=== PATIENT | female | born 1995 | race Caucasian/White ===

== ENCOUNTER → 2016-02-22 | Outpatient (CLI) | payer MEDICAID ==
[~2016-02-22] MED LIST: IBUP-232 PO; PRENCAP6 PO; TETA1INJ6 IM
== END ==
LOC: HPND 08:00
PROVIDERS: ATTEND Family Medicine
DX: O44.02 Complete placenta previa NOS or without hemorrhage, second trimester (principal)
CPT/HCPCS: 76816

== ENCOUNTER 2016-03-02 21:49 | Emergency (ER) | payer MEDICAID ==
[~2016-03-02 21:49] MED LIST changes: -IBUP-232 PO; -TETA1INJ6 IM
--- NOTE | 2016-03-02 22:51 | PD ---
HPI Chief Complaint Abdominal pain Date Seen: Mar 02, 2016 Time Seen: 22:15 (Thad Hernandez MD R1) Travel History International Travel<30 Days: No Contact w/Intl Traveler<30Days: No Known Affected Area: No (Thad Hernandez MD R1) History of Present Illness HPI 21 yo at 26/5 weeks gestation presenting with abdominal pain. Pain is localized to umbilicus and radiates downward to pelvic bone. Occurs every 2 hours for about 1 minute per episode. No associated fevers, chills, constipation , diarrhea, dysuria. No VB, vaginal discharge, LOF, or Ctx. Feeling movement 1-2 times daily. Drinks approx 3 glasses of water daily with some soda. No recent sexual activity. No vaginal douching. (Thad Hernandez MD R1) History Past Medical History Medical History: Denies Significant Hx (Thad Hernandez MD R1) Obstetric History Obstetric History First (Thad Hernandez MD) Past Surgical History Surgical History: No Previous Surgery (Thad Hernandez MD) Family History Family History: Negative (Thad Hernandez MD R1) Social History Alcohol Use: No Tobacco Use: Yes (Current every day smoker, 5-8 cigarettes per day) Substance Abuse: No (Thad Hernandez MD R1) Allergies-Medications (Allergen,Severity, Reaction): Coded Allergies: No Known Allergies (Unverified , 02/24/16) Home Meds Active Scripts Mv & Min W/Fe Fumarat ( 1) Cap1 Cap PO DAILY #30 CAP Ref 11 Prov:Selin Meadows MD 12/02/15 Review of Systems Except as stated in HPI: all other systems reviewed are Neg (Thad Hernandez MD R1) Physical Exam Narrative GENERAL: Well-nourished, well-developed patient. SKIN: Warm and dry. HEAD: Normocephalic and atraumatic. EYES: No scleral icterus. No injection or drainage. ENT: No nasal drainage noted. Mucous membranes pink. Airway patent. NECK: Supple, trachea midline. No JVD. CARDIOVASCULAR: Regular rate and rhythm without murmurs, gallops, or rubs. RESPIRATORY: Breath sounds equal bilaterally. No accessory muscle use. ABDOMEN/GI: Abdomen soft, non-tender, no rebound, no guarding GENITOURINARY: Deferred; no contractions noted on tocometry FHT's: 145 +/- 2 EXTREMITIES: No cyanosis or edema. BACK: Nontender without obvious deformity. NEUROLOGICAL: Awake and alert. Motor and sensory grossly within normal limits. Normal speech. (Thad Hernandez MD R1) Data Data Vital Signs Reviewed: Yes Orders Vital Signs (Adult) .ON ADMISSION (03/02/16 22:03) ^ Labor Status (03/02/16 22:03) ^ Hydration (03/02/16 22:03) Urinalysis - C+S If Indicated (03/02/16 22:13) (Thad Hernandez MD R1) MDM Medical Record Reviewed: Yes Interpretation(s) 21 year old at 26/2 weeks gestation presenting with abdominal pain likely due to dehydration vs round ligament pain Narrative Course / MDM #1 IUP FHTs mid 140s, reassuring * Continue routine OB care #2 Tobacco use Current every day smoker * Encouraged to stop smoking #3 Abdominal pain By history most likely round ligament pain. VS wnl, unlikely to be appendicitis. Pattern not suggestive of contractions, no Ctx noted on tocometry. * Hydration * UA to r/o UTI Update: UA negative for UTI, stable for D/C home with outpatient follow up sdw Dr. Goodman neeraj Lund (Thad Hernandez MD R1) Attending Attestation Patient seen and evaluated with resident under direct supervision, agree with assessment and plan. (Ashish Lund MD) Diagnosis Diagnosis: Primary Impression: Round ligament pain Disposition: 01 DISCHARGE HOME Condition: Good Thad Hernandez MD R1 Mar 02, 2016 22:51 Ashish Lund MD Mar 03, 2016 08:53
[2016-03-03 00:05] LABS: BACTERIA, URINE OCC /hpf; BLOOD, URINE NEG (NEG); COMMENT (UR) CULT NOT INDICATED; CULTURE IF INDICATED CULT NOT INDICATED; GLUCOSE,URINE NEG (NEG); KETONE, URINE NEG (NEG); NITRITE,URINE NEG (NEG); URINE COLOR COLORLESS (YELLW/STRAW)
[2016-03-03 00:15] VITALS: RESP 18
[2016-03-26] MEDS ORDERED: TETA1INJ6 IM (10:36)
== END 2016-03-03 04:39 | disposition home or self-care (01) ==
LOC: HOBED 21:49
DX: O26.92 Pregnancy related conditions, unspecified, second trimester (principal); R10.2 Pelvic and perineal pain; Z3A.26 26 weeks gestation of pregnancy
CPT/HCPCS: 81001; 99284

== ENCOUNTER 2016-03-19 11:44 | Emergency (ER) | payer MEDICAID ==
[2016-03-19 12:11] VITALS: BP 104/59; PULSE 77
--- NOTE | 2016-03-19 12:14 | PD ---
HPI Chief Complaint Vomited blood 1 this morning Date Seen: Mar 19, 2016 Time Seen: 12:11 (Joselito Iraheta MD R2) Chief Complaint Patient seen and assessment/plan reviewed. (Cheryl Nguyen MD) Travel History International Travel<30 Days: No Contact w/Intl Traveler<30Days: No Known Affected Area: No (Joselito Iraheta MD R2) History of Present Illness HPI 21 G1 at 28.5 presents to OB triage because she vomited twice this morning and the latter time had a small amount of blood. She woke up this morning feeling her normal self. She ate eggs and wick and went to shower. While in the shower she vomited twice. The first time she vomited was food she ate. The second time she vomited, there was a small "approximately 6 ounces" bright red blood in the vomit. She called the [facility] where her physician, Dr. Meadows, works. That office recommended she come to the triage area. Since coming to the triage, the patient a longer nausea or vomiting. She feels perfectly normal here. No diarrhea, fever, chills, cough, sick contacts, constipation, abdominal pain. Para: 0 : 1 (Joselito Iraheta MD R2) History Past Medical History Medical History: Denies Significant Hx (Joselito Iraheta MD R2) Past Surgical History Surgical History: No Previous Surgery (Joselito Iraheta MD R2) Family History Family History: Negative (Joselito Iraheta MD R2) Social History Alcohol Use: No Tobacco Use: Yes Substance Abuse: No (Joselito Iraheta MD R2) Allergies-Medications (Allergen,Severity, Reaction): Coded Allergies: No Known Allergies (Unverified , 02/24/16) Home Meds Active Scripts Mv & Min W/Fe Fumarat ( 1) Cap1 Cap PO DAILY #30 CAP Ref 11 Prov:Selin Meadows MD 12/02/15 Physical Exam Narrative GENERAL: Well-nourished, well-developed patient. SKIN: Warm and dry. HEAD: Normocephalic and atraumatic. EYES: No scleral icterus. No injection or drainage. ENT: No nasal drainage noted. Mucous membranes pink. Airway patent. NECK: Supple, trachea midline. No JVD. CARDIOVASCULAR: Regular rate and rhythm without murmurs, gallops, or rubs. RESPIRATORY: Breath sounds equal bilaterally. No accessory muscle use. ABDOMEN/GI: Abdomen soft, non-tender, bowel sounds present, no rebound, no guarding FHT's: Category: 1 Baseline: 145 Reactive: Yes with accelerations Variability: Moderate Decels: None EXTREMITIES: No cyanosis or edema. BACK: Nontender without obvious deformity. No CVA tenderness. NEUROLOGICAL: Awake and alert. Motor and sensory grossly within normal limits. Five out of 5 muscle strength in all muscle groups. Normal speech. (Joselito Iraheta MD R2) Data Data Vital Signs Reviewed: Yes (Joselito Iraheta MD R2) [facility] Medical Record Reviewed: Yes Interpretation(s) 21 G1 at 28.5 presents after having vomited this morning and finding blood in it. Vitals reviewed, patient is stable. Patient no longer having nausea or vomiting. 1. IUP -Category 1 tracing -Continue routine care. 2. Vomiting -Likely related to her meal this morning. -No longer vomiting. No longer nauseous. Patient is back to her baseline. -Discharge patient home. (Joselito Iraheta MD R2) Diagnosis Diagnosis: Primary Impression: Vomiting Disposition: DISCHARGE HOME Condition: Stable Joselito Iraheta MD R2 Mar 19, 2016 12:14 Cheryl Nguyen MD Mar 19, 2016 12:51
[2016-03-26] MEDS ORDERED: TETA1INJ6 IM (10:36)
== END 2016-03-19 12:45 | disposition home or self-care (01) ==
LOC: HOBED 11:44
DX: O21.0 Mild hyperemesis gravidarum (principal); Z3A.28 28 weeks gestation of pregnancy
CPT/HCPCS: 99283

== ENCOUNTER → 2016-04-04 | Outpatient (CLI) | payer MEDICAID ==
[~2016-04-04] MED LIST changes: +IBUP-232 PO
== END ==
LOC: HPND 07:53
PROVIDERS: ATTEND Family Medicine
DX: Z34.90 Encounter for supervision of normal pregnancy, unspecified, unspecified trimester (principal)
CPT/HCPCS: 76816

== ENCOUNTER 2016-05-31 10:23 | Emergency (ER) | payer MEDICAID ==
[~2016-05-31 10:23] MED LIST changes: -IBUP-232 PO
--- NOTE | 2016-05-31 11:28 | PD ---
HPI Chief Complaint Contractions Date Seen: May 31, 2016 (Jason Avelar MD R2) Travel History International Travel<30 Days: No Contact w/Intl Traveler<30Days: No (Jason Avelar MD R2) History of Present Illness HPI Ms. Hammonds is a 21 yo G[address] of [address] Meadows at an estimated 39 2/7weeks (ELVIRA 06/05 per LMP) who presents with complaint of contractions. Patient reports the contractions began at approximately 4 AM this morning and it gradually increased in frequency. It and states that contractions initially seemed to occur approximately 45 minutes apart, but recently had been regularly less than 5 minutes apart. Patient denies vaginal bleeding or loss of vaginal fluid. The patient does not report headache, visual changes, shortness of breath, chest pain,, leg swelling, dysuria, or other symptoms. Patient has not noticed any decrease in movement. Per review of records, patient had reassuring ultrasound without abnormalities or abnormal placental placement. Patient has gradually decreased her tobacco intake during ; she smokes approximately 5 cigarettes a day currently. GBS negative. Para: 0 : 1 (Jason Avelar MD R2) History Past Medical History Narrative Medical Tobacco abuse (Jason Avelar MD R2) Obstetric History Obstetric History G1 (Jason Avelar MD R2) Past Surgical History Surgical History: No Previous Surgery (Jason Avelar MD R2) Family History Family History: Negative (Jason Avelar MD R2) Social History Narrative Social History Patient smoked approximately one PPD prior to ; currently smokes approximately 5 cigarettes daily Alcohol Use: No Tobacco Use: Yes Substance Abuse: No (Jason Avelar MD R2) Allergies-Medications (Allergen,Severity, Reaction): Coded Allergies: No Known Allergies (Unverified , 05/29/16) Home Meds Active Scripts Mv & Min W/Fe Fumarat ( 1) Cap1 Cap PO DAILY #30 CAP Ref 11 Prov:Selin Meadows MD 12/02/15 Physical Exam BP 122/80 HR 75 T 98.3F RR 19 Narrative GENERAL: Well-nourished, well-developed patient. SKIN: Warm and dry. HEAD: Normocephalic and atraumatic. EYES: No scleral icterus. No injection or drainage. ENT: No nasal drainage noted. Mucous membranes pink. Airway patent. NECK: Supple, trachea midline. No JVD. CARDIOVASCULAR: Regular rate and rhythm without murmurs RESPIRATORY: CTAB, normal rate ABDOMEN/GI: Abdomen soft, non-tender, bowel sounds present, no rebound, no guarding Gravid EXTREMITIES: No cyanosis or edema. NEUROLOGICAL: Awake and alert. Motor and sensory function grossly within normal limits. GENITOURINARY: External Genitalia: intact and normal in appearance Cervix: Dilatation: 2 Effacement: 70% Station: -3 Presentation: V Membranes: Intact Uterine Contractions: q2-3 min FHT's: Category: 1 Baseline: 135 Reactive: Y Variability: Mod Decels: None (Jason Avelar MD R2) MDM Medical Record Reviewed: Yes Narrative Course / MDM 21 yo G1 patient of [address]. Meadows at an estimated 39 2/7weeks (ELVIRA 06/05 per LMP) who presents with complaint of contractions -Cat 1 rhythm -Cervix 2/70%/-3 Contractions q 2-3 min -GBS- -Tobacco abuse during but no other complications Plan: -Since reassuring rhythm x>20 min, patient given options of returning home (resting/eating prior to returning with increased contractions, ROM, or other symptoms) vs. ambulating in OB ED and rechecking cervix in ~1 hr -Patient elected to ambulate in ED and recheck cervix Interval: Cervical recheck performed: 3 cm dilation/90% effacement/-2 station Patient with persistent contractions, no loss of fluid EFM reassuring, category 1 Updated plan: Discussed with patient options of staying for L&D (due to having made cervical change in early labor) versus going home and returning with increased pain with contractions/loss of fluid/other symptoms (since G1 in early labor): -Patient elected to return home during early labor with plans to return to OB ED with any new symptoms or with increased pain with contractions (Jason Avelar MD R2) Attending Attestation 39 weeks, uncomplicated care with Dr. Meadows. Irregular UC, minimal cervical change on serial exams. Latent labor. Patient desires to go home and eat, and return if changes in contractions, ROM, VB, etc. CAT I FHT. Agree with plan of care, Dr. Avelar. (Linnea Colbert MD) Diagnosis Diagnosis: Primary Impression: Term Additional Impression: Labor without complication Disposition: 01 DISCHARGE HOME Condition: Stable Patient Instructions: Movement (ED), General Instructions, Early Labor Signs (ED) Jason Avelar MD R2 May 31, 2016 11:28 Linnea Colbert MD May 31, 2016 13:09
== END 2016-05-31 13:47 | disposition home or self-care (01) ==
LOC: HOBED 10:23
DX: R10.84 Generalized abdominal pain (principal); O26.93 Pregnancy related conditions, unspecified, third trimester; Z3A.39 39 weeks gestation of pregnancy
CPT/HCPCS: 59025

== ENCOUNTER 2016-05-31 16:15 | Inpatient (IN) | payer MEDICAID ==
[~2016-05-31] VITALS: Ht 154.9 cm; Wt 69.4 kg
[2016-05-31] VITALS (59 sets, daily range): BP systolic 94–144; BP diastolic 58–98; PULSE 65–141; RESP 18; TEMP 97.9–98
[~2016-05-31 16:15] MED LIST changes: +DIPHTH/TETANUS/ACEL PERTUSSIS (BOOSTER) 0.5 ML VIAL/PFS IM ONE; +MEASLES, MUMPS, RUBELLA VACCINE 0.5 ML VIAL SQ ONE
[2016-05-31] MEDS ORDERED: LACTATED RINGER'S 1000 ML INJ 1,000 ML IV PRN (17:17)
[2016-05-31] MEDS ORDERED: LACTATED RINGER'S 1000 ML INJ 1,000 ML IV SCH (17:17)
[2016-05-31] MEDS ORDERED: MINERAL OIL 10 ML VIAL TOPICAL PRN (17:30)
[2016-05-31] MEDS ORDERED: SODIUM CHLORID 0.9% 500 ML INJ 500 ML IV PRN (17:30)
[2016-05-31] MEDS ORDERED: OXYTOCIN 30 UNITS-500ML PREMIX 500 ML IV ONE (17:30)
[2016-05-31] MEDS ORDERED: CITRIC ACID-SODIUM CITRATE LIQ 30 ML UDC PO SCH (17:30)
[2016-05-31] MEDS ORDERED: LIDOCAINE HCL 1% 50 ML VIAL I-DERMAL PRN (17:30)
[2016-05-31] MEDS ORDERED: LIDOCAINE HCL 1% 50 ML VIAL INFIL PRN (17:30)
[2016-05-31] MEDS ORDERED: SODIUM CHLOR 0.9% 1000 ML INJ 1,000 ML IV PRN (17:37)
[2016-05-31 18:06] LABS: AUTOMATED NEUTROPHIL # 13.6 TH/MM3 (1.8-7.7); BASOPHIL # 0.1 TH/MM3 (0-0.2); BASOPHIL % 0.4 % (0.0-2.0); EOSINOPHIL # 0.1 TH/MM3 (0-0.4); EOSINOPHIL % 0.4 % (0.0-4.0); HEMATOCRIT 36.1 % (35.0-46.0); LYMPH % 9.6 % (9.0-44.0); LYMPHOCYTE # 1.5 TH/MM3 (1.0-4.8); MEAN CELL VOLUME 94.2 FL (80.0-100.0); MEAN CORPUSCULAR HGB CONC 33.9 % (32.0-36.0); MONO % 4.3 % (0.0-8.0); NEUT % 85.3 % (16.0-70.0); PLATELET COUNT 169 TH/MM3 (150-450); RED BLOOD COUNT 3.84 MIL/MM3 (4.00-5.30); RED CELL DISTRIBUTION WIDTH 11.9 % (11.6-17.2); WHITE BLOOD COUNT 15.9 TH/MM3 (4.0-11.0)
[2016-05-31 18:07] LABS: HEMO FLAGS AUTO DIFF
[2016-05-31 18:07] LABS: BACTERIA, URINE RARE /hpf; BLOOD, URINE NEG (NEG); COMMENT (UR) CULT NOT INDICATED; CULTURE IF INDICATED CULT NOT INDICATED; GLUCOSE,URINE NEG (NEG); KETONE, URINE NEG (NEG); NITRITE,URINE NEG (NEG); PH, URINE 7.5 (5.0-8.5); SQUAMOUS EPITHELIAL CELL URINE <1 /hpf (0-5); URINE COLOR LIGHT-YELLOW (YELLW/STRAW)
--- NOTE | 2016-05-31 18:12 | HHI.HP ---
HPI Chief Complaint contractions Date Seen: May 31, 2016 (Jason Avelar MD R2) Travel History International Travel<30 Days: No Contact w/Intl Traveler<30Days: No (Jason Avelar MD R2) History of Present Illness HPI Ms. Hammonds is a 21 yo G1 patient of Dr. Meadows at an estimated 39 2/7weeks (ELVIRA 4 per LMP) who presents with complaint of contractions. [Patient seen earlier this morning with cervical dilation of 2-3 cm over 1+ hours suggestive of early labor; patient sent home after labor precautions given.] Patient states the contractions have increased in level of pain since earlier this morning. Per history earlier today: Contractions began at approximately 4 AM and gradually increased in frequency so that they are occurring < 5 minutes apart. No vaginal bleeding or loss of vaginal fluid. No reported headache, visual changes, shortness of breath, chest pain,, leg swelling, dysuria, or other symptoms. No reported decrease in movement. Per review of records, patient had reassuring ultrasound without abnormalities or abnormal placental placement. Patient has gradually decreased her tobacco intake during ; she smokes approximately 5 cigarettes a day currently. GBS negative. Para: 0 : 1 (Jason Avelar MD R2) History Past Medical History Narrative Medical Tobacco abuse (Jason Avelar MD R2) Obstetric History Obstetric History G1 (Jason Avelar MD R2) Past Surgical History Surgical History: No Previous Surgery (Jason Avelar MD R2) Family History Narrative Family History None reported (Jason Avelar MD R2) Social History Narrative Social History Patient smoked approximately one PPD prior to ; currently smokes approximately 5 cigarettes daily Alcohol Use: No Tobacco Use: Yes Substance Abuse: No (Jason Avelar MD R2) Allergies-Medications (Allergen,Severity, Reaction): Coded Allergies: No Known Allergies (Unverified , 05/31/16) Home Meds Active Scripts Mv & Min W/Fe Fumarat ( 1) Cap1 Cap PO DAILY #30 CAP Ref 11 Prov:Selin Meadows MD 12/02/15 Review of Systems General / Constitutional: No: Fever, Chills HENT: No: Headaches Cardiovascular: No: Chest Pain or Discomfort Respiratory: No: Short of Breath Gastrointestinal: Abdominal Pain (with contractions), No: Nausea, Vomiting Genitourinary: No: Dysuria (Jason Avelar MD R2) Physical Exam BP 126/83 HR 80 T 98.5F Narrative GENERAL: Well-nourished, well-developed patient. SKIN: Warm and dry. HEAD: Normocephalic and atraumatic. EYES: No scleral icterus. No injection or drainage. ENT: No nasal drainage noted. Mucous membranes pink. Airway patent. NECK: Supple, trachea midline. No JVD. CARDIOVASCULAR: Regular rate and rhythm without murmurs RESPIRATORY: CTAB, normal rate ABDOMEN/GI: Abdomen soft, non-tender, bowel sounds present, no rebound, no guarding Gravid EXTREMITIES: No cyanosis or edema. NEUROLOGICAL: Awake and alert. Motor and sensory function grossly within normal limits. GENITOURINARY: External Genitalia: intact and normal in appearance Cervix: Dilatation: 4-5 Effacement: 80% Station: -2 Presentation: V Membranes: Intact Uterine Contractions: q2-3 min FHT's: Category: 1 Baseline: 135 Reactive: Y Variability: Mod Decels: None (Jason Avelar MD R2) Data Data Vital Signs Reviewed: Yes Orders Admit To Inpatient (05/31/16 ) Vital Signs (Adult) .Per protocol (05/31/16 17:17) Heart (05/31/16 17:17) Amnioinfusion (05/31/16 17:17) Urinary Catheter Management .ONCE (05/31/16 17:17) Diet Liquid (05/31/16 Dinner) Lactated Ringer's 1000 Ml Inj (Lr 1000 M (05/31/16 17:17) Lactated Ringer's 1000 Ml Inj (Lr 1000 M (05/31/16 17:17) Sodium Chlorid 0.9% 500 Ml Inj (Ns 500 M (05/31/16 17:30) Sodium Chlor 0.9% 1000 Ml Inj (Ns 1000 M (05/31/16 17:37) Lidocaine 1% Inj (50 Ml) (Xylocaine 1% I (05/31/16 17:30) Citric Acid-Sodium Citrate Liq (Bicitra (05/31/16 17:30) Fentanyl Inj (Fentanyl Inj) (05/31/16 17:30) Fentanyl Inj (Fentanyl Inj) (05/31/16 17:30) Complete Blood Count With Diff (05/31/16 17:17) Hold Clot (05/31/16 17:17) Abo/Rh Blood Type (05/31/16 17:17) Urinalysis - C+S If Indicated (05/31/16 17:17) Resp Oxygen Non Rebreathe Mask (05/31/16 ) ^ Epidural / Intrathecal Infus (05/31/16 17:17) Oxytocin 30 Units-500ml Premix (Pitocin (05/31/16 17:30) Lidocaine 1% Inj (50 Ml) (Xylocaine 1% I (05/31/16 17:30) Light Mineral Oil (Muri-Lube Oil) (05/31/16 17:30) Inpatient Certification (05/31/16 ) Specimen To Be Collected PRN (05/31/16 17:17) (Jason Avelar MD R2) Assessment/Plan Problem List: (1) Term (2) Labor without complication Assessment and Plan 21 yo G1 patient of [address]. Meadows at an estimated 39 2/7weeks (ELVIRA 425 per LMP) who presents with complaint of contractions -Cat 1 rhythm -Cervix 4-5/80%/-2 Contractions q 2-3 min -GBS- -Tobacco abuse during but no other complications Plan: -Will admit for labor We'll obtain UA, CBC, blood typing Continue EFM We'll check cervix 23 hours; will augment labor as needed -Epidural if desired (Jason Avelar MD R2) Attending Attestation Admit, active labor CAT I FHT Expectant management AROM when indicated (Linnea Colbert MD) Jason Avelar MD R2 May 31, 2016 18:12 Linnea Colbert MD May 31, 2016 23:41
[2016-05-31 18:41] LABS: BANDS 8 % (0-6); EOSINOPHILS 1 % (0-4); METAMYELOCYTES 1 % (0-1); NEUTROPHIL # MANUAL DIFF 14.2 TH/MM3 (1.8-7.7); PLATELET ESTIMATE SMEAR NORMAL (NORMAL); PLATELET MORPHOLOGY ENLARGED (NORMAL); POLYS (SEG NEUTROPHILS) 80 % (16-70); SCAN/DIFF FINAL DIFF MANUAL; WBC DIFF SAMPLE 100
[2016-05-31] MEDS ORDERED: fentaNYL 2MCG-BUPIV 0.125% INJ 100 ML ONE (19:11)
[2016-05-31] MEDS ORDERED: CALCIUM CARBONATE 500 MG CHEWABLE TAB CHEW STA (22:15)
--- NOTE | 2016-05-31 23:26 | PD.OB.DELI ---
Delivery Date: May 31, 2016 Anesthesia: Epidural Episiotomy: None Vaginal Delivery: Normal, Spontaneous Presentation: Occiput anterior Nuchal Cord: None Delayed cord clamping (45 sec): Yes Infant: Female One Minute : 9 Five Minute : 9 Weight: 2795 Placenta: Spontaneous delivery Laceration: Perineal laceration, 2 deg Repair: Vicryl running (2-0 Vicryl repair of mild 2nd degree perineal laceration) Additional Information Delivery at 2252 Tactile stimulation/suction bulb of Supervised/assisted by Dr. Colbert (Jason Avelar MD R2) Additional Information 39w2d spontaneous labor, GBS negative. Epidural for anesthesia, AROM, clear. Uncomplicated , placenta spontaneous and intact, grossly normal. Small midline second degree lac repaired. EBL 150 ml (Linnea Colbert MD) Jason Avelar MD R2 May 31, 2016 23:26 Linnea Colbert MD May 31, 2016 23:44
[2016-05-31] MEDS ORDERED: ONDANSETRON ODT 4 MG TAB PO PRN (23:30)
[2016-05-31] MEDS ORDERED: oxyCODONE/ACETAMINOPHEN 5 MG/325 MG TAB PO PRN ×2 (23:30)
[2016-05-31] MEDS ORDERED: SODIUM CHLORIDE 0.9% FLUSH 10 ML FLUSH IV FLUSH PRN (23:30)
[2016-05-31] MEDS ORDERED: ZOLPIDEM TARTRATE 5 MG TAB PO PRN (23:30)
[2016-05-31] MEDS ORDERED: ALUMINUM/MAGNESIUM/SIMETH 30 ML CUP PO PRN (23:30)
[2016-05-31] MEDS ORDERED: DOCUSATE SODIUM 50 MG/SENNA 8.6 MG TAB PO PRN (23:30)
[2016-05-31] MEDS ORDERED: ACETAMINOPHEN 325 MG TAB PO PRN (23:30)
[2016-05-31] MEDS ORDERED: BENZOCAINE 20% TOPICAL SPRAY 60 ML CAN TOPICAL PRN (23:30)
[2016-05-31] MEDS ORDERED: WITCH HAZEL 50%/GLYCERIN 12.5% 40 PAD JAR TOPICAL PRN (23:30)
[2016-06-01] VITALS: BP 114/72; PULSE 155; RESP 18
[2016-06-01 00:15] VITALS: BP 117/66; PULSE 81; RESP 18
[2016-06-01] MEDS: IBUPROFEN 600 MG TAB PO PRN ×2 (01:12→19:46)
[2016-06-01 02:42] VITALS: BP 115/57; PULSE 79; RESP 18; TEMP 98.2
[2016-06-01 07:40] VITALS: BP 124/69; PULSE 81; RESP 16; TEMP 97.9
--- NOTE | 2016-06-01 08:31 | HHI.OB ---
Subjective Post Day: 1 Remarks Ms. Hammonds is a 21 yo who is PPD 1 from (05/31). Ms. Hammonds reports that she is doing well at this time; she reports abdominal pain which is controlled with pain medications. Patient also reports mild dysuria. Patient ambulating well. Patient states she does not think she passed gas yet at this time. Patient has attempted to breast-feed but infant has had poor suck; patient currently pumping breast milk and attempting bottle feeds. (Jason Avelar MD R2) Objective Vitals/I&O Vital Signs Date Time Temp Pulse Resp B/P Pulse Ox O2 Delivery O2 Flow Rate FiO2 06/01/16 07:40 97.9 81 16 06/01/16 07:40 124/69 06/01/16 02:42 98.2 79 18 115/57 06/01/16 02:12 18 06/01/16 00:15 81 117/66 06/01/16 00:15 18 06/01/16 00:00 155 114/72 06/01/16 00:00 18 05/31/16 23:45 103 128/62 05/31/16 23:45 18 05/31/16 23:31 79 114/58 05/31/16 23:30 18 05/31/16 23:15 97 123/67 05/31/16 23:15 18 05/31/16 23:15 98.0 05/31/16 23:01 103 103/69 05/31/16 22:55 102 05/31/16 22:50 98 05/31/16 22:46 106 102/78 05/31/16 22:45 94 05/31/16 22:35 88 05/31/16 22:35 101 05/31/16 22:30 99 94/71 05/31/16 22:30 83 05/31/16 22:30 97 05/31/16 22:25 95 05/31/16 22:25 83 05/31/16 22:20 104 05/31/16 22:20 100 05/31/16 22:16 141 130/74 05/31/16 22:15 81 05/31/16 22:15 84 05/31/16 22:10 89 124/72 05/31/16 22:10 83 05/31/16 22:10 18 05/31/16 22:10 77 05/31/16 22:05 76 05/31/16 22:05 74 05/31/16 22:00 80 05/31/16 22:00 78 05/31/16 22:00 79 127/98 05/31/16 21:55 74 05/31/16 21:55 74 20 21:50 75 05/31/16 21:50 75 05/31/16 21:45 74 20 21:45 74 135/64 20 21:45 73 20 21:40 84 05/31/16 21:40 80 05/31/16 21:35 79 05/31/16 21:35 79 05/31/16 21:30 73 05/31/16 21:30 80 20 21:30 74 128/67 05/31/16 21:25 71 05/31/16 21:25 71 05/31/16 21:20 78 05/31/16 21:20 77 05/31/16 21:15 73 05/31/16 21:15 75 130/74 05/31/16 21:15 76 05/31/16 21:10 76 05/31/16 21:10 75 05/31/16 21:05 85 05/31/16 21:05 84 05/31/16 21:03 93 144/76 05/31/16 21:00 106 05/31/16 21:00 106 05/31/16 20:45 73 120/77 05/31/16 20:45 66 05/31/16 20:45 73 05/31/16 20:35 66 2017 20:35 66 2017 20:30 83 109/71 2017 20:30 80 2017 20:30 83 2017 20:25 84 20 20:25 85 20 20:20 88 20 20:20 84 2017 20:15 76 20 20:15 66 123/73 2017 20:15 68 2017 20:10 72 2017 20:10 70 20 20:05 65 4 20:05 67 05/31/16 20:03 74 109/91 05/31/16 20:00 73 05/31/16 20:00 72 104/88 05/31/16 20:00 70 05/31/16 19:57 82 131/70 05/31/16 19:55 76 05/31/16 19:55 76 05/31/16 19:54 75 129/58 05/31/16 19:51 77 127/61 05/31/16 19:50 72 05/31/16 19:50 73 05/31/16 19:48 73 125/63 05/31/16 19:45 78 05/31/16 19:45 74 123/67 05/31/16 19:45 75 05/31/16 19:42 77 125/64 05/31/16 19:40 81 05/31/16 19:40 79 05/31/16 19:39 86 140/77 05/31/16 19:36 71 132/71 05/31/16 19:35 91 05/31/16 19:35 91 05/31/16 19:33 79 133/69 05/31/16 19:32 79 144/71 05/31/16 19:30 80 05/31/16 19:30 18 05/31/16 19:30 80 05/31/16 19:30 97.9 05/31/16 19:25 86 05/31/16 19:25 84 05/31/16 19:20 78 05/31/16 19:20 75 05/31/16 19:15 77 Objective Remarks GENERAL: Well-nourished, well-developed patient. CARDIOVASCULAR: Regular rate and rhythm without murmurs. Normal perfusion RESPIRATORY: CTAB, normal rate ABDOMEN/GI: Abdomen soft, non-tender. Fundus: Firm, non-tender at umbilicus. GENITOURINARY: Light to moderate bleeding. EXTREMITIES: No cyanosis or edema, non-tender, without signs of DVT. Medications and IVs Current Medications Medications (Trade) Dose Ordered Sig/Jose Route Start Time Stop Time Status Last Admin (NS Flush) 2 ml BID IV FLUSH 06/01/16 09:00 (NS Flush) 2 ml UNSCH PRN IV FLUSH 05/31/16 23:30 (Tylenol) 650 mg Q4H PRN PO 05/31/16 23:30 (Motrin) 600 mg Q6H PRN PO 05/31/16 23:30 06/01/16 01:12 (Percocet 5-325 Mg) 1 tab Q4H PRN PO 05/31/16 23:30 (Percocet 5-325 Mg) 2 tab Q4H PRN PO 05/31/16 23:30 (Americaine 20% Top Spr) 1 spray Q4H PRN TOPICAL 05/31/16 23:30 (Tucks Pads) 1 applic QID PRN TOPICAL 05/31/16 23:30 (Miriam-Colace) 2 tab Q12H PRN PO 05/31/16 23:30 (Ambien) 5 mg HS PRN PO 05/31/16 23:30 (Mag-Al Plus Susp Liq) 15 ml Q8H PRN PO 05/31/16 23:30 (Zofran Odt) 4 mg Q6H PRN PO 05/31/16 23:30 (Jason Avelar MD R2) Assessment/Plan Problem List: (1) Term (2) care and examination Assessment and Plan 21 yo who is PPD 1 from (05/31) -Continue routine post- care -Continue Motrin/Percocet -Continue stool softener -Patient stating she has not had passed gas yet -Continue breast feeding support - will meet with patient -Continue pumping/ as needed -Continue to encourage ambulation -Continue to monitor VS, vaginal bleeding (Jason Avelar MD R2) Attending Attestation PPD #1 s/p . Doing well, . Continue PP care and observation. Patient seen and examined, d/w Dr. Avelar and Dr. Kraft (Linnea Colbert MD) Jason Avelar MD R2 Jun 01, 2016 08:31 Linnea Colbert MD Jun 01, 2016 09:07
[2016-06-01] MEDS ORDERED: SODIUM CHLORIDE 0.9% FLUSH 10 ML FLUSH IV FLUSH SCH (09:00)
[2016-06-01 19:45] VITALS: BP 124/74; PULSE 81; RESP 18; TEMP 98.2
[2016-06-02] MEDS ORDERED: IBUP-232 PO (06:24)
--- NOTE | 2016-06-02 06:24 | HHI.DCPOC ---
Discharge Care Plan Diagnosis: (1) Labor without complication (2) Term Report Symptoms to Your Doctor -Temperate above 100.5 degrees -Redness, of incision or excessive or foul smelling drainage -Unusual pain or calf pain -Increased vaginal bleeding -Painful or difficulty urinating -Feelings of extreme sadness or anxiety after 2 weeks Goals to Promote Your Health * To prevent worsening of your condition and complications * To maintain your health at the optimal level Directions to Meet Your Goals Take your medications as prescribed Follow your dietary instruction Follow activity as directed Ensure plenty of rest for recovery Drink fluids for hydration Keep your appointments as scheduled Take your immunizations and boosters as scheduled If your symptoms worsen call your PCP, if no PCP go to Urgent Care Center or Emergency Room Smoking is Dangerous to Your Health. Avoid second hand smoke Call the 24-hour crisis hotline for domestic abuse at Swapna Cameron MD R1 Jun 02, 2016 06:24
[2016-06-02 07:30] VITALS: BP 124/83; PULSE 76; RESP 16; TEMP 98
--- NOTE | 2016-06-02 09:30 | HHI.OB ---
Subjective Post Day: 2 Remarks Ms. Hammonds is a 21 yo who is PPD 2 from (05/31). Ms. Hammonds reports that she is doing well at this time; she reports pain controlled with Motrin. No dysuria reported. Patient ambulating well. Patient passing gas normally. Patient well but feels her milk has not came in fully so is supplementing with formula. No shortness of breath, leg swelling, or other concerns at this time. (Jason Avelar MD R2) Objective Vitals/I&O Vital Signs Date Time Temp Pulse Resp B/P Pulse Ox O2 Delivery O2 Flow Rate FiO2 06/01/16 20:46 18 06/01/16 19:45 98.2 81 18 124/74 Objective Remarks GENERAL: Well-nourished, well-developed patient. CARDIOVASCULAR: Regular rate and rhythm without murmurs. Normal perfusion RESPIRATORY: CTAB, normal rate ABDOMEN/GI: Abdomen soft, non-tender. Fundus: Firm, non-tender at umbilicus. GENITOURINARY: Light to moderate bleeding. EXTREMITIES: Without signs of DVT. Medications and IVs Current Medications Medications (Trade) Dose Ordered Sig/Jose Route Start Time Stop Time Status Last Admin (NS Flush) 2 ml BID IV FLUSH 06/01/16 09:00 (NS Flush) 2 ml UNSCH PRN IV FLUSH 05/31/16 23:30 (Tylenol) 650 mg Q4H PRN PO 05/31/16 23:30 (Motrin) 600 mg Q6H PRN PO 05/31/16 23:30 06/01/16 19:46 (Percocet 5-325 Mg) 1 tab Q4H PRN PO 05/31/16 23:30 (Percocet 5-325 Mg) 2 tab Q4H PRN PO 05/31/16 23:30 (Americaine 20% Top Spr) 1 spray Q4H PRN TOPICAL 05/31/16 23:30 (Tucks Pads) 1 applic QID PRN TOPICAL 05/31/16 23:30 (Miriam-Colace) 2 tab Q12H PRN PO 05/31/16 23:30 (Ambien) 5 mg HS PRN PO 05/31/16 23:30 (Mag-Al Plus Susp Liq) 15 ml Q8H PRN PO 05/31/16 23:30 (Zofran Odt) 4 mg Q6H PRN PO 05/31/16 23:30 (Jason Avelar MD R2) Assessment/Plan Problem List: (1) Term (2) care and examination Assessment and Plan 21 yo who is PPD 2 from (2252 05/31) -Continue routine post- care -Continue Motrin -Continue stool softener -Continue breast feeding support - met with patient -Continue pumping//formula supplementation as needed -Continue to encourage ambulation -Continue to monitor VS, vaginal bleeding -F/U in 6 mo (Jason Avelar MD R2) Collaborating MD Comments I have seen the patient and agree with management plans (Cheryl Nguyen MD) Jason Avelar MD R2 Jun 02, 2016 09:30 Cheryl Nguyen MD Jun 04, 2016 20:53
== END 2016-06-02 13:43 | disposition home or self-care (01) | DRG 775 ==
LOC: H2EA 16:15 → H1EA 06-01 00:54
PROVIDERS: ADMIT Obstetrics & Gynecology; ATTEND Obstetrics & Gynecology
PROC: 10E0XZZ Delivery of Products of Conception, External Approach (ICD-10-PCS; principal; 2016-05-31)
PROC: 0KQM0ZZ Repair Perineum Muscle, Open Approach (ICD-10-PCS; 2016-05-31)
PROC: 00HU33Z Insertion of Infusion Device into Spinal Canal, Percutaneous Approach (ICD-10-PCS; 2016-05-31)
PROC: 3E0R3CZ (ICD-10-PCS; 2016-05-31)
PROC: 10907ZC Drainage of Amniotic Fluid, Therapeutic from Products of Conception, Via Natural or Artificial Opening (ICD-10-PCS; 2016-05-31)
DX: O99.334 Smoking (tobacco) complicating childbirth (principal); F17.210 Nicotine dependence, cigarettes, uncomplicated; Z37.0 Single live birth; O70.1 Second degree perineal laceration during delivery; Z3A.39 39 weeks gestation of pregnancy; R30.0 Dysuria
CPT/HCPCS: 59025; 81001; 85007; 85027; 86900; 86901; J3010; J7120

== ENCOUNTER → 2017-07-03 | Outpatient (CLI) | payer MEDICAID ==
[~2017-07-03] MED LIST changes: -DIPHTH/TETANUS/ACEL PERTUSSIS (BOOSTER) 0.5 ML VIAL/PFS IM ONE; -MEASLES, MUMPS, RUBELLA VACCINE 0.5 ML VIAL SQ ONE
== END ==
LOC: HPND 10:39
PROVIDERS: ATTEND Family Medicine
DX: Z36.3 Encounter for antenatal screening for malformations (principal)
CPT/HCPCS: 76805

== ENCOUNTER 2017-11-26 07:59 | Inpatient (IN) ==
--- NOTE | 2017-11-26 09:37 | P.HPOB ---
History of Present Illness Primary Care Physician: No Primary Care Physician History of Present Illness: Patient is a 22-year-old G 2 P 1 at 38/6 who presents today for induction of labor. Patient had been measuring below normal in her outpatient clinic, went to OB diagnostics who diagnosed her with IUGR (<3rd centile)and recommended she be delivered today. She states she has had normal movement. Denies nausea, vomiting, fever, chills, abdominal pain, shortness of breath, changes in vision, headache, lightheadedness, dizziness, dysuria, hematuria, frequency, change in urine color/smell, change in bowel habits, large gushes of fluid. Notes some minor whitish discharge, normal for . No bloody discharge, abnormally colored or malodorous discharge. No other complaints today. - Inpatient Certification I certify that the inpatient services were ordered in accordance with Medicare regulations governing the order. This includes certification that hospital inpatient services are reasonable and necessary and in the case of services not specified as inpatient-only under 42 CFR 419.22(n), that they are appropriately provided as inpatient services in accordance to with the 2-midnight benchmark under 43 CFR 412.3(e) Review of Systems Constitutional: Denies body ache(s), Denies chills, Denies fever(s), Denies headache(s) Eyes: Denies blind spots, Denies blurry vision, Denies change in vision, Denies double vision, Denies floaters, Denies itchy eyes, Denies loss of vision Ears, Nose, Mouth, and Throat: Denies bleeding gums, Denies nasal discharge Cardiovascular: Denies chest pain, Denies fainting, Denies lightheadedness, Denies shortness of breath Respiratory: Denies cough, Denies stridor, Denies wheezing Gastrointestinal: Denies black, tarry stools, Denies change in bowel habits, Denies cramping, Denies loose stools, Denies nausea, Denies vomiting Genitourinary: Denies blood in urine, Denies painful urination, Denies pelvic pain, Denies urinary urgency, Denies vaginal odor, Denies vaginal itching Musculoskeletal: Denies abnormal walking, Denies back pain, Denies muscle cramps , Denies muscle weakness Skin/Breast: Denies skin ulcer, Denies sores Neurologic: Denies abnormal movements, Denies behavioral changes, Denies headache(s), Denies loss of vision Psychiatric: Denies anxiety, Denies confusion, Denies depression Endocrine: Denies cold intolerance, Denies excessive sweating Hematologic/Lymphatic: Denies easy bleeding, Denies easy bruising Medications and Allergies Allergies Allergy/AdvReac Type Severity Reaction Status Date / Time No Known Allergies Allergy Unknown none Uncoded 11/26/17 09:23 Exam Vital signs: Intake & Output 11/25/17 11/26/17 11/26/17 18:59 06:59 18:59 Weight 62.596 kg Narrative: GENERAL: Well-nourished, well-developed patient. SKIN: Warm and dry. HEAD: Normocephalic and atraumatic. EYES: No scleral icterus. No injection or drainage. ENT: No nasal drainage noted. Mucous membranes pink. Airway patent. NECK: Supple, trachea midline. No JVD. CARDIOVASCULAR: Regular rate and rhythm without murmurs, gallops, or rubs. RESPIRATORY: Breath sounds equal bilaterally. No accessory muscle use. ABDOMEN/GI: Abdomen soft, non-tender, bowel sounds present, no rebound, no guarding GENITOURINARY: External Genitalia: intact and normal in appearance Cervix: posterior Dilatation: 1 Effacement: 50% Station: -3 Presentation: vertex Membranes: intact FHT's: Category: 1 Baseline: 135 Reactive: yes Variability: moderat Decels: none EXTREMITIES: No cyanosis or edema. BACK: Nontender without obvious deformity. No CVA tenderness. NEUROLOGICAL: Awake and alert. Motor and sensory grossly within normal limits. Five out of 5 muscle strength in all muscle groups. Normal speech. Results - Labs CBC & Chem 7: 11/26/17 09:30 Caprini VTE Risk Assessment Caprini VTE Risk Assessment: No/Low Risk (score <= 1) Caprini Risk Assessment Model: Point Value = 1 Point Value = 2 Point Value = 3 Point Value = 5 Age 41-60 Minor surgery BMI > 25 kg/m2 Swollen legs Varicose veins or History of unexplained or recurrent spontaneous Oral contraceptives or hormone replacement Sepsis (< 1 month) Serious lung disease, including pneumonia (< 1 month) Abnormal pulmonary function Acute myocardial infarction Congestive heart failure (< 1 month) History of inflammatory bowel disease Medical patient at bed rest Age 61-74 Arthroscopic surgery Major open surgery (> 45 min) Laparoscopic surgery (> 45 min) Malignancy Confined to bed (> 72 hours) Immobilizing plaster cast Central venous access Age >= 75 History of VTE Family history of VTE Factor V Leiden Prothrombin [id number] Lupus anticoagulant Anticardiolipin antibodies Elevated serum homocysteine Heparin-induced thrombocytopenia Other congenital or acquired thrombophilia Stroke (< 1 month) Elective arthroplasty Hip, pelvis, or leg fracture Acute spinal cord injury (< 1 month) Prophylaxis Regimen: Total Risk Factor Score Risk Level Prophylaxis Regimen 0-1 Low Early ambulation 2 Moderate Order ONE of the following: *Sequential Compression Device (SCD) *Heparin 5000 units SQ BID 3-4 Higher Order ONE of the following medications: *Heparin 5000 units SQ TID *Enoxaparin/Lovenox 40 mg SQ daily (WT < 150 kg, CrCl > 30 mL/min) *Enoxaparin/Lovenox 30 mg SQ daily (WT < 150 kg, CrCl > 10-29 mL/min) *Enoxaparin/Lovenox 30 mg SQ BID (WT < 150 kg, CrCl > 30 mL/min) AND/OR *Sequential Compression Device (SCD) 5 or more Highest Order ONE of the following medications: *Heparin 5000 units SQ TID (Preferred with Epidurals) *Enoxaparin/Lovenox 40 mg SQ daily (WT < 150 kg, CrCl > 30 mL/min) *Enoxaparin/Lovenox 30 mg SQ daily (WT < 150 kg, CrCl > 10-29 mL/min) *Enoxaparin/Lovenox 30 mg SQ BID (WT < 150 kg, CrCl > 30 mL/min) AND *Sequential Compression Device (SCD) Assessment and Plan - Diagnosis (1) IUGR (intrauterine growth restriction) Status: Acute (2) 38 weeks gestation of Code(s): Z3A.38 - 38 weeks gestation of Status: Acute - Plan 22-year-old presenting today for induction of labor due to IUGR. Seen in OB diagnostics today, growth below 3rd centile. M recommended delivery. -Admit for induction of labor -Cervical ripening with Cytotec -FHT category 1, reassuring -Continue FHT monitoring -Expectant management DW Dr. Ramos
[2017-11-26] MEDS ORDERED: fentaNYL Citrate Inj 100 MCG/2 ML Ampul IV.PUSH PRN ×2 (09:47)
[2017-11-26] MEDS ORDERED: Sod Chloride 0.9% Inj 1,000 ML IV.CONT PRN (09:47)
[2017-11-26] MEDS ORDERED: Naloxone Inj 0.4 MG/ML Vial IV.PUSH PRN ×2 (09:47→19:47)
[2017-11-26] MEDS ORDERED: Oxytocin 30 Units/500ml Premix 30 UNITS/500 ML BAG IV.SIG ONE (09:47)
[2017-11-26] MEDS ORDERED: Sodium Chlor 0.9% Inj 500 ML IV.SIG PRN (09:47)
[2017-11-26] MEDS ORDERED: Citric Acid/Sodium Citrate Liq 30 ML UDC PO SCH (10:00)
[2017-11-26] MEDS ORDERED: Sodium Chloride 0.9% 2 ML Flush PRN IV.FLUSH (10:27)
[2017-11-26 10:29] LABS: Baso # (Auto) 0.1 th/mm3 (0.0-0.2); Baso % (Auto) 0.6 % (0.0-2.0); Eos # (Auto) 0.2 th/mm3 (0.0-0.4); Eos % (Auto) 1.9 % (0.0-4.0); Hematocrit 34.4 % (35.0-46.0); Hemoglobin 11.7 gm/dL (11.6-15.3); Lymph # (Auto) 1.6 th/mm3 (1.0-4.8); Lymph % (Auto) 18.9 % (9.0-44.0); Mean Corpuscular HGB Conc 34.1 % (32.0-36.0); Mean Corpuscular Hemoglobin 32.8 pg (27.0-34.0); Mean Corpuscular Volume 96.2 fL (80.0-100.0); Mean Platelet Volume 12.3 fL (7.0-11.0); Mono # (Auto) 0.6 th/mm3 (0.0-0.9); Mono % (Auto) 6.6 % (0.0-8.0); Neut # (Auto) 6.2 th/mm3 (1.8-7.7); Platelet Count 138 th/mm3 (150-450); Red Blood Count 3.58 mil/mm3 (4.00-5.30); Red Cell Distribution Width 13.4 % (11.6-17.2); White Blood Count 8.6 th/mm3 (4.0-11.0)
[2017-11-26 11:54] LABS: Bacteria,Urine Few /hpf; Bilirubin,Urine Negative (Negative); Clarity,Urine Clear (Clear); Glucose,Urine (UA) Negative (Negative); Leukocyte Esterase,Urine Small (Negative); Mucus,Urine Few /lpf (Occasional); Nitrite,Urine Negative (Negative); Specific Gravity,Urine 1.004 (1.002-1.035); Squamous Epithelial Cell,Urine 1 /hpf (0-5)
[2017-11-26 11:57] LABS: Color,Urine Light-Yellow (Yellw/Straw)
[2017-11-26 12:09] LABS: Amphetamine Urine With Conf Neg (Neg); Benzodiazepine Urine With Conf Neg (Neg)
[2017-11-26] MEDS ORDERED: fentaNYL 2MCG-Bupiv 0.125% Epi 150 ML EPIDURAL ONE (17:59)
[2017-11-26] MEDS ORDERED: Lidocaine 2%/Epinephrine 1:200,000 PF 10 ML SDV ONE (18:18)
[2017-11-26] MEDS ORDERED: Oxytocin 30 Units/500ml Premix 30 UNITS/500 ML BAG ONE (19:09)
[2017-11-26] MEDS ORDERED: Lidocaine 1% Inj 50 ML Vial ONE (19:37)
[2017-11-26] MEDS ORDERED: fentaNYL Citrate Inj 100 MCG/2 ML Ampul EPIDURAL ONE (19:45)
[2017-11-26] MEDS ORDERED: fentaNYL 2MCG-Bupiv 0.125% Epi 150 ML EPIDURAL PRN (19:45)
[2017-11-26] MEDS ORDERED: Bisacodyl 10 MG Supp RECTAL PRN (19:47)
[2017-11-26] MEDS ORDERED: Witch Hazel 50%/Glyderin 12.5% 40 Pad Jar RECTAL PRN (19:47)
[2017-11-26] MEDS ORDERED: Oxytocin 30 Units/500ml Premix 30 UNITS/500 ML BAG IV.CONT PRN (19:47)
[2017-11-26] MEDS ORDERED: Benzocaine 20% Top Spray 60 ML Can TOPICAL PRN (19:47)
--- NOTE | 2017-11-26 19:53 | P.OBDELI ---
Weeks Gestation: 38 Patient Started Active Labor: No Medical Induction of Labor: Yes Artificial Rupture of Membrane: No Anesthesia: Epidural Episiotomy: none Vaginal Delivery: Normal, Spontaneous Presentation: Occiput anterior Nuchal Cord: None Delayed Cord Clamping (45 sec): Yes Placenta: Spontaneous delivery, Intact, 3 vessel cord Laceration: 1 deg Repair: Vicryl running : Male Infant Infant Delivery Date: 11/26/17 Delivery Time: 19:25 Weight: 2.555 kg score (1 min): 9 score (5 min): 9
[2017-11-26] MEDS ORDERED: Measles/Mumps/Rubella Vaccine Inj 0.5 ML Vial SQ ONE (21:00)
[2017-11-26] MEDS ORDERED: Diphtheria/Tetanus/Pertussis Vaccine Inj 0.5 ML Syringe IM ONE (21:00)
[2017-11-26] MEDS ORDERED: Zolpidem Tartrate 5 MG Tablet PO PRN (21:00)
[2017-11-27] MEDS: Senna/Docusate Sodium 8.6/50 MG Tablet PO SCH ×3 (00:23→22:45)
[2017-11-27] MEDS: Sodium Chloride 0.9% 2 ML Flush BID IV.FLUSH SCH ×3 (00:23→22:47)
[2017-11-27] MEDS: Acetaminophen 325 MG Tablet PO PRN ×3 (02:55→22:45)
--- NOTE | 2017-11-27 07:40 | P.PNOB ---
Subjective Post day: 1 Interval history: Patient is a 22-year-old delivered at 38 weeks and 2 days. Patient is day 1 after . Patient's pain is well-controlled. Patient reports minimal bleeding. Patient reports eating and drinking without any nausea or vomiting. Patient has passed gas but has not had a bowel movement. Patient denies chest pain and shortness of breath. Patient has been ambulating; she denies lower extremity pain. Patient reports desire for contraception, which we will discuss at her first follow-up visit. Patient has decided to formula-feed. Objective Vital Signs/I&O: Vital Signs 11/26/17 09:23 11/26/17 11:21 11/26/17 12:37 Temperature 98.4 F Pulse Rate 65 71 Respiratory Rate 18 Blood Pressure 117/63 113/75 11/26/17 12:38 11/26/17 13:33 11/26/17 14:58 Temperature Pulse Rate 59 L 74 Respiratory Rate 18 18 Blood Pressure 110/69 107/62 11/26/17 14:59 11/26/17 16:28 11/26/17 16:29 Temperature 98.0 F Pulse Rate 84 70 Respiratory Rate 20 Blood Pressure 119/59 L 107/66 11/26/17 18:15 11/26/17 18:28 11/26/17 18:30 Temperature Pulse Rate 65 68 59 L Respiratory Rate 18 18 Blood Pressure 111/66 129/78 118/61 11/26/17 18:35 11/26/17 18:40 11/26/17 18:55 Temperature Pulse Rate 74 79 70 Respiratory Rate Blood Pressure 119/68 114/67 117/63 11/26/17 19:00 11/26/17 19:10 11/26/17 19:26 Temperature Pulse Rate 109 H 78 Respiratory Rate 18 Blood Pressure 126/79 135/102 H 11/26/17 19:35 11/26/17 19:49 11/26/17 19:51 Temperature Pulse Rate 70 82 77 Respiratory Rate 18 Blood Pressure 118/63 114/68 113/71 11/26/17 19:53 11/26/17 20:00 11/26/17 20:10 Temperature 97.9 F Pulse Rate 77 72 Respiratory Rate 18 Blood Pressure 118/76 123/68 11/26/17 20:17 11/26/17 20:18 11/26/17 20:20 Temperature Pulse Rate 71 68 Respiratory Rate 18 Blood Pressure 103/67 117/69 11/26/17 21:10 Temperature 98.0 F Pulse Rate 72 Respiratory Rate 18 Blood Pressure 113/69 Intake & Output 11/26/17 11/27/17 11/27/17 18:59 06:59 18:59 Intake Total 1000 / 1000 1500 / 1500 Balance 1000 / 1000 1500 / 1500 Weight 62.596 kg Intake: IV 1000 / 1000 1500 / 1500 LR 1000 mL Inj 1,000 ML @ 125 1000 / 1000 mls/hr IV.CONT .Q8H SHALONDA Rx#: [id number] LR 1000 mL Inj 1,000 ML @ 3000 1000 / 1000 mls/hr IV.SIG UNSCH PRN Rx#: [id number] Pitocin 30 Units/NS 500 ml 500 / 500 Premix 30 units In 500 ml @ 999 mls/hr IV.SIG BOLUS ONE Rx#: [id number] Result Diagrams: 11/26/17 09:30 Objective Remarks: GENERAL: Well-nourished, well-developed patient. CARDIOVASCULAR: Regular rate and rhythm without murmurs, gallops, or rubs. RESPIRATORY: Breath sounds equal bilaterally. No accessory muscle use. ABDOMEN/GI: Abdomen soft, minimally-tender. Fundus: Firm, non-tender at umbilicus. GENITOURINARY: Light to moderate bleeding. EXTREMITIES: No cyanosis or edema, non-tender, without signs of DVT. Medications and IVs: Active Medications Acetaminophen (Tylenol) 650 mg PO Q4H PRN PRN Reason: PAIN SCALE 1 TO 2 Last Admin: 11/27/17 02:55 Dose: 650 mg Al Hydroxide/Mg Hydroxide (Milk Of Magnesia Liq) 30 ml PO Q12H PRN PRN Reason: Mild Constipation Benzocaine (Americaine 20% Top [place]) 1 spray TOPICAL Q4H PRN PRN Reason: For Perineum Discomfort Bisacodyl (Dulcolax Supp) 10 mg RECTAL DAILY PRN PRN Reason: SEVERE CONSITIPATION Ephedrine Sulfate (Ephedrine/Ns Syringe) 10 mg IV.PUSH UNSCH PRN PRN Reason: SEE LABEL COMMENTS Stop: 11/27/17 19:45 Fentanyl/Bupivacaine/Sodium Chlor (Fentanyl 2 Mcg-Bupiv 0.125% Epi) 150 mls @ 12 mls/hr EPIDURAL PRN PRN PRN Reason: for Labor Pain Oxytocin (Pitocin 30 Units/Ns 500 Ml Premix) 30 units in 500 mls @ 100 mls/hr IV.CONT UNSCH PRN PRN Reason: Heavy bleeding Ibuprofen (Motrin) 800 mg PO Q8H PRN PRN Reason: For Cramping Last Admin: 11/27/17 02:55 Dose: 800 mg Lactulose (Lactulose Liq) 30 ml PO DAILY PRN PRN Reason: SEVERE CONSITIPATION Miscellaneous Information (Misc Information) 1 each OTHER UNSCH PRN PRN Reason: SEE LABEL COMMENTS Stop: 11/27/17 19:45 Miscellaneous Information (Misc Information) 1 each OTHER UNSCH PRN PRN Reason: SEE LABEL COMMENTS Stop: 11/27/17 19:45 Misoprostol (Cytotec) 25 mcg VAGINAL ONCE PRN PRN Reason: For cervical ripening Stop: 11/27/17 14:45 Naloxone HCl (Narcan Inj) 0.1 mg IV.PUSH Q2M PRN PRN Reason: for opiate reversal Ondansetron HCl (Zofran Odt) 4 mg PO Q6H PRN PRN Reason: NAUSEA OR VOMITING Oxycodone/Acetaminophen (Percocet 5/325 Mg) 1 tab PO Q4H PRN PRN Reason: PAIN SCALE 3 TO 5 Oxycodone/Acetaminophen (Percocet 5/325 Mg) 2 tab PO Q4H PRN PRN Reason: PAIN SCALE 6 TO 10 Senna/Docusate Sodium (Miriam-Colace) 1 tab PO BID [facility] Last Admin: 11/27/17 00:23 Dose: Not Given Sennosides (Senokot) 17.2 mg PO Q12H PRN PRN Reason: Moderate Constipation Sodium Chloride (Ns Flush) 2 ml IV.FLUSH BID [facility] Last Admin: 11/27/17 00:23 Dose: Not Given Sodium Chloride (Ns Flush) 2 ml IV.FLUSH PRN PRN PRN Reason: FLUSH AFTER USING IV ACCESS Sodium Chloride (Ns Flush) 2 ml IV.FLUSH BID [facility] Last Admin: 11/26/17 21:09 Dose: Not Given Sodium Chloride (Ns Flush) 2 ml IV.FLUSH PRN PRN PRN Reason: FLUSH AFTER USING IV ACCESS Witch Kimberlee/Glycerin (Tucks Pads) 1 applicatio RECTAL QID PRN PRN Reason: HEMORRHOIDS Zolpidem Tartrate (Ambien) 5 mg PO HS PRN PRN Reason: SLEEP Assessment and Plan - Diagnosis (1) 38 weeks gestation of Code(s): Z3A.38 - 38 weeks gestation of Status: Acute (2) Vaginal delivery Code(s): O80 - Encounter for full-term uncomplicated delivery Status: Acute - Plan Patient is a 22-year-old delivered at 38 weeks and 2 days. Patient is day 1 after . Continue routine care. Motrin and Percocet when necessary for pain. Encourage OOB. Pelvic rest for 6 weeks will need follow-up appointment at that time. Contraception: To be discussed at 6 week visit. Anticipate discharge tomorrow. dw Dr. Bellamy. - Attending Attestation The exam, history, and the medical decision-making described in the above note were completed with the assistance of the resident physician. I reviewed and agree with the findings presented. I attest that I had a [id number] encounter with the patient on the same day, and personally performed and documented my assessment and findings in the medical record. Delivered last night with laborist. performed my own exam with uterus firm below level of umbilicus. anticipate d/c tomorrow AM
[2017-11-27] MEDS ORDERED: Influenza (Quadrivalent) Vaccine 0.5 ML Syringe IM ONE (22:15)
[2017-11-28 08:21] VITALS: BP 107/65; PULSE 73; RESP 20
[2017-11-28 08:22] VITALS: TEMP 97.6
[2017-11-28] MEDS: Sodium Chloride 0.9% 2 ML Flush BID IV.FLUSH SCH (08:42)
--- NOTE | 2017-11-28 08:57 | P.PNOB ---
Subjective Post day: 2 Interval history: Patient is a 22-year-old delivered at 38 weeks and 2 days. Patient is day 2 after . Patient's pain is well-controlled. Patient reports minimal bleeding. Patient reports eating and drinking without any nausea or vomiting. Patient has passed gas but has not had a bowel movement. Patient denies chest pain and shortness of breath. Patient has been ambulating; she denies lower extremity pain. Patient reports desire for contraception, which we will discuss at her first follow-up visit. Patient has decided to formula-feed. Objective Vital Signs/I&O: Vital Signs 11/27/17 19:54 11/28/17 08:20 Temperature 97.9 F 97.6 F Pulse Rate 76 73 Respiratory Rate 18 20 Blood Pressure 113/70 107/65 Result Diagrams: 11/26/17 09:30 Objective Remarks: GENERAL: Well-nourished, well-developed patient. CARDIOVASCULAR: Regular rate and rhythm without murmurs, gallops, or rubs. RESPIRATORY: Breath sounds equal bilaterally. No accessory muscle use. ABDOMEN/GI: Abdomen soft, non-tender. Fundus: Firm, non-tender at umbilicus. GENITOURINARY: Light to moderate bleeding. EXTREMITIES: No cyanosis or edema, non-tender, without signs of DVT. Medications and IVs: Active Medications Acetaminophen (Tylenol) 650 mg PO Q4H PRN PRN Reason: PAIN SCALE 1 TO 2 Last Admin: 11/27/17 22:45 Dose: 650 mg Al Hydroxide/Mg Hydroxide (Milk Of Magnesia Liq) 30 ml PO Q12H PRN PRN Reason: Mild Constipation Benzocaine (Americaine 20% Top [place]) 1 spray TOPICAL Q4H PRN PRN Reason: For Perineum Discomfort Bisacodyl (Dulcolax Supp) 10 mg RECTAL DAILY PRN PRN Reason: SEVERE CONSITIPATION Fentanyl/Bupivacaine/Sodium Chlor (Fentanyl 2 Mcg-Bupiv 0.125% Epi) 150 mls @ 12 mls/hr EPIDURAL PRN PRN PRN Reason: for Labor Pain Oxytocin (Pitocin 30 Units/Ns 500 Ml Premix) 30 units in 500 mls @ 100 mls/hr IV.CONT UNSCH PRN PRN Reason: Heavy bleeding Ibuprofen (Motrin) 800 mg PO Q8H PRN PRN Reason: For Cramping Last Admin: 11/27/17 22:45 Dose: 800 mg Lactulose (Lactulose Liq) 30 ml PO DAILY PRN PRN Reason: SEVERE CONSITIPATION Naloxone HCl (Narcan Inj) 0.1 mg IV.PUSH Q2M PRN PRN Reason: for opiate reversal Ondansetron HCl (Zofran Odt) 4 mg PO Q6H PRN PRN Reason: NAUSEA OR VOMITING Oxycodone/Acetaminophen (Percocet 5/325 Mg) 1 tab PO Q4H PRN PRN Reason: PAIN SCALE 3 TO 5 Oxycodone/Acetaminophen (Percocet 5/325 Mg) 2 tab PO Q4H PRN PRN Reason: PAIN SCALE 6 TO 10 Senna/Docusate Sodium (Miriam-Colace) 1 tab PO BID [facility] Last Admin: 11/27/17 22:45 Dose: 1 tab Sennosides (Senokot) 17.2 mg PO Q12H PRN PRN Reason: Moderate Constipation Sodium Chloride (Ns Flush) 2 ml IV.FLUSH BID [facility] Last Admin: 11/28/17 08:42 Dose: Not Given Sodium Chloride (Ns Flush) 2 ml IV.FLUSH PRN PRN PRN Reason: FLUSH AFTER USING IV ACCESS Sodium Chloride (Ns Flush) 2 ml IV.FLUSH BID [facility] Last Admin: 11/28/17 08:42 Dose: Not Given Sodium Chloride (Ns Flush) 2 ml IV.FLUSH PRN PRN PRN Reason: FLUSH AFTER USING IV ACCESS Witch Kimberlee/Glycerin (Tucks Pads) 1 applicatio RECTAL QID PRN PRN Reason: HEMORRHOIDS Zolpidem Tartrate (Ambien) 5 mg PO HS PRN PRN Reason: SLEEP Assessment and Plan - Diagnosis (1) 38 weeks gestation of Code(s): Z3A.38 - 38 weeks gestation of Status: Acute (2) Vaginal delivery Code(s): O80 - Encounter for full-term uncomplicated delivery Status: Acute - Plan Patient is a 22-year-old delivered at 38 weeks and 2 days. Patient is day 2 after . Continue routine care. Motrin and Percocet when necessary for pain. Encourage OOB. Pelvic rest for 6 weeks will need follow-up appointment at that time. Contraception: To be discussed at 6 week visit. Anticipate discharge today. neeraj Gtz. - Attending Attestation The exam, history, and the medical decision-making described in the above note were completed with the assistance of the resident physician. I reviewed and agree with the findings presented. I attest that I had a [id number] encounter with the patient on the same day, and personally performed and documented my assessment and findings in the medical record. I discussed with the resident and evaluated the patient. She is day two after an uncomplicated vaginal delivery. She plans to follow with Dr. Morse for care in the clinic. We discussed control options and she is considering Nexplanon. Pain is well controlled with Motrin. Likely to be discharged today. Discharge planning discussed at length.
== END 2017-11-28 13:42 | disposition home or self-care (01) ==
LOC: HPND 07:59 → H2E 09:04 → H1EA 21:01
PROVIDERS: ADMIT Obstetrics & Gynecology; ATTEND Obstetrics & Gynecology